=== PATIENT | female | born 1940 | race Caucasian/White ===

== ENCOUNTER 2019-01-25 21:38 | Emergency (ER) | payer MEDICARE, BC ==
--- OUTSIDE RECORDS SUMMARY | 2019-01-25 21:44 | XMS REPORT | Continuity of Care Document ---
:1940 External Reference #:[id number] Author Name Steph Galvan PA Address [address] [place] [address] Care Team Providers Name Role Phone Kaylee Lee Top Hat Body Maker Care Team Information Recreation Officer [phone] Problems Active Problems Provider Date Hypothyroidism Mario Nichols DO Onset: 11/28/2012 Benign essential hypertension Mario Nichols DO Onset: 11/28/2012 Transient cerebral ischemia Sunday Osorio MD Onset: 10/11/2005 Iatrogenic hypothyroidism Sunday Osorio MD Onset: 02/11/2005 Generalized anxiety disorder Sunday Osorio MD Onset: 02/11/2005 Coronary arteriosclerosis Sunday Osorio MD Onset: 02/11/2005 Mixed hyperlipidemia Sunday Osorio MD Onset: 02/11/2005 Social History Type Date Description Comments Sex Unknown ETOH Use Denies alcohol use Tobacco Use Start: Unknown Patient has never smoked Smoking Status Reviewed: 01/16/18 Patient has never smoked Allergies, Adverse Reactions, Alerts Active Allergies Reaction Severity Comments Date Lescol 06/15/2004 Inactive Allergies NKDA 04/12/2014 Medications Active Medications SIG Qnty Indications Ordering Date Provider Acetaminophen-Codeine 1 by mouth every 20tabs Mario Nichols, 12/25/2018 #3 6 hours as needed DO 300-30mg Tablets pain- caution sedation Nitroglycerin 1 sl on onset of 30tabs Mario Nichols, 07/01/2016 0.4mg chest pain, 1 DO Tablets Sub dose in 5 min if pain persist Metoprolol Succinate Take 1 Tablet 90tabs Mario Nichols, 07/01/2016 ER Every Evening DO 50mg Tablets ER 24HR Sertraline HCL Take 1/2 Tablet 45tabs Mario Nichols, 03/22/2016 100mg Daily DO Tablets Levothyroxine Sodium 1 by mouth every 90tabs Mario Nichols, 01/01/2016 day DO 88mcg Tablets Atorvastatin Calcium Take 1 Tablet 90tabs Mario Nichols, 02/11/2005 40mg Daily DO Tablets Aspirin Adult Low 1 by mouth daily I25.10 Unknown 03/07/1995 Strength with food 81mg Chewtabs Calcium Carbonate 1 po bid Compagni, Antacid LATHA Weldon 500mg Chewtabs Topiramate Take 1 Tablet 90tabs Mario Nichols, 50mg Tablets Every Night AT DO Bedtime Immunizations CPT Code Status Date Vaccine Reaction Lot # [id number] Given 01/16/2018 Prevnar 13 Pneumococal Conjugate Vaccine [id number] 68023 Given 01/03/2018 Fluzone Highdose Age 65 And Over Preservative & Antibiotic Free 20168 Given 04/14/2017 Fluzone Highdose Age 65 And Over [place] Preservative & Antibiotic Free 33125 Given 03/24/2015 Fluzone Highdose Age 65 And Over Preservative & Antibiotic Free 65058 Given 11/28/2012 Afluria Or Fluvirin Flu Vac Intramuscular 61259 Given 11/24/2011 Afluria Or Fluvirin Flu Vac Intramuscular 87584 Refused 01/10/2019 Fluzone Highdose Age 65 And Over Preservative & Antibiotic Free Vital Signs Date Vital Result Comment 01/10/2019 1:57pm Body Temperature 97.8 F Weight 155.00 lb Heart Rate 78 /min BP Systolic 158 mmHg BP Diastolic 80 mmHg Respiratory Rate 18 /min Height 60 inches 5'0" BMI (Body Mass Index) 30.3 kg/m2 07/19/2018 10:20am Weight 155.00 lb Heart Rate 68 /min BP Systolic 134 mmHg BP Diastolic 70 mmHg Respiratory Rate 17 /min Height 60 inches 5'0" BMI (Body Mass Index) 30.3 kg/m2 Results Test Acquired Date Facility Test Result H/L Range Note Basic (BMP) 07/12/2018 [facility] Sodium 138 mmol/L 135-146 1 Potassium 4.2 mmol/L 3.5-5.2 Chloride# 104 mmol/L 97-110 2 Carbon Dioxide 27 mmol/L 24-34 Glucose 133 mg/dL High 70-105 BUN 17 mg/dL 6-26 Creatinine 0.7 mg/dL 0.5-1.4 Calcium 9.6 mg/dL 8.5-10.5 3 Female Egfr 81 >60 4 Male Egfr 90 >60 5 Anion Gap 7 mmol/L 5-15 6 Lipid Treatment 07/12/2018 [facility] Cholesterol 132 mg/dL 50-199 Triglycerides 139 mg/dL 30-200 HDL 40 mg/dL 35-85 7 Chol/ HDL Ratio 3.3 ratio Low 3.7-5.6 VLDL 28 mg/dL 2-29 LDL (Calc) 64 mg/dL 20-99 8 Alt 23 U/L 3-42 Ast 22 U/L 8-42 Laboratory test finding 07/12/2018 [facility] TSH 0.37 uIU/mL 0.35-4.94 Free T4 1.02 ng/dL 0.70-1.48 Hemoglobin A1c 07/12/2018 [facility] Hemoglobin A1c 6.2 % High 4.1-5.9 Estimated Average Glucose Calc 131 mg/dL 71-140 Laboratory test finding 07/12/2018 [facility] T3 Total 1.1 ng/mL (0.6-1.8) 9 1 Updated reference range on new analyzer 2 Updated reference range on new analyzer 3 Updated reference range 07-05-2018 4 Concerning GFR Guidelines for Americans: Normal function or mild renal disease, if clinically at risk: >/= 60 mL/min Moderately decreased: 30-59 Severely decreased: 15-29 Renal failure: <15 There is reduced accuracy above 60ml/min/1.73 m squared, but the numeric value may be clinically useful in the near 60 range 5 Concerning GFR Guidelines: Normal function or mild renal disease, if clinically at risk: >/= 60 mL/min Moderately decreased: 30-59 Severely decreased: 15-29 Renal failure: <15 There is reduced accuracy above 60ml/min/1.73 m squared, but the numeric value may be clinically useful in the near 60 range Glomerular Filtration Rate (GFR) is estimated based on the CKD-EPI equation, which assumes a steady state for creatinine as recommended by the National Kidney Disease Education Program in conjunction with the National Institutes of Health and the National Kidney Foundation. Clinical conditions in which it may be necessary to measure GFR by using clearance methods include extremes of age and body size, severe malnutrition or obesity, diseases of skeletal muscle, paraplegia or quadriplegia, vegetarian diet, rapidly changing kidney function, and calculation of the dose of potentially toxic drugs that are excreted by the kidneys. 6 Updated Reference Range -2017 7 Per NCEP ATP III Guidelines: Results lower than 40 mg/dL are suggestive of increased risk for coronary artery disease. Results > or = to 60 mg/dL are considered a negative risk factor. 8 Per NCEP ATP III Guidelines: Normal Population <130 Patients with medical conditions: CHD/DM Optimal: <100 Borderline high: 130-159 High: 160-189 Very high: >189 9 New Assay and Reference Range in use 10/24/17. 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 R73.01 Impaired fasting glucose E03.9 Hypothyroidism, unspecified E78.2 Mixed hyperlipidemia E66.9 Obesity, unspecified Z68.30 Body mass index (BMI) 30.0-30.9, adult Assessments Date Code Description Provider 01/10/2019 R21 Rash and other nonspecific skin eruption Steph Galvan PA 01/10/2019 Z68.30 Body mass index (BMI) 30.0-30.9, adult Steph Galvan PA 07/19/2018 F43.0 Acute stress reaction Mario Nichols DO 07/19/2018 H91.90 Unspecified hearing loss, unspecified ear Mario Nichols DO 07/19/2018 I25.10 Atherosclerotic heart disease of [place] Mario 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 with 07/19/2018 G45.9 Transient cerebral ischemic attack, Mario Nichols DO unspecified 07/19/2018 R09.82 Postnasal drip Mario Nichols DO 07/19/2018 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 Mario Nichols, DO 07/19/2018 R73.01 Impaired fasting glucose Mario Nichols, DO 07/19/2018 E03.9 Hypothyroidism, unspecified Mario Nichols, DO 07/19/2018 E78.2 Mixed hyperlipidemia Mario Nichols, DO 07/19/2018 E66.9 Obesity, unspecified Mario Nichols, DO 07/19/2018 Z68.30 Body mass index (BMI) 30.0-30.9, adult Mario Nichols, DO 07/12/2018 E03.9 Hypothyroidism, unspecified Mario Nichols, DO 07/12/2018 E03.9 Hypothyroidism, unspecified Schedule, Laboratory 07/12/2018 I10 Essential (primary) hypertension Schedule, Laboratory 07/12/2018 R73.01 Impaired fasting glucose Schedule, Laboratory 07/12/2018 I10 Essential (primary) hypertension [facility] 07/12/2018 E03.9 [facility], [facility] 07/12/2018 R73.01 Impaired fasting glucose [facility] Plan of Treatment Future Appointment(s):01/12/2019 8:35 am - Schedule, Laboratory at [facility]2018 10:00 am - Nichols, Mario, DO at [facility]01/10/2019 - Steph Galvan PAR21 Rash and other nonspecific skin eruptionComments:Suspect insect biteDoubt LymeWill add Lyme titers to upcoming blood workMonitor for rash for worseningFollow up:PrnZ68.30 Body mass index (BMI) 30.0-30.9, adult Functional Status Description No Information Available Mental Status Description No Information Available Referrals Description No Information Available
--- OUTSIDE RECORDS SUMMARY | 2019-01-25 21:44 | XMS REPORT | Continuity of Care Document ---
:1940 External Reference #:[id number] Author Name Mario Nichols DO Address [address] [place] [address] Care Team Providers Name Role Phone Kaylee Lee Straight Line Edger Care Team Information Party Host [phone] Problems Active Problems Provider Date Hypothyroidism Mario [...] Patient has never smoked Smoking Status Reviewed: 01/19/19 Patient has never smoked Allergies, Adverse Reactions, Alerts Active Allergies Reaction Severity Comments Date Lescol 06/15/2004 Inactive Allergies NKDA 04/12/2014 Medications Active Medications SIG Qnty Indications Ordering Provider Date Nitroglycerin 1 sl on onset of 30tabs Mario Nichols, 07/01/2016 0.4mg chest pain, 1 DO Tablets Sub dose in 5 min if pain persist Metoprolol Succinate take 1 tablet 90tabs Mario Nichols, 07/01/2016 ER every evening DO 50mg Tablets ER 24HR Sertraline HCL take 1 tablet 90tabs Mario Nichols, 03/22/2016 100mg daily DO Tablets Levothyroxine Sodium 1 by mouth every 90tabs Mario Nichols, 01/01/2016 day DO 88mcg Tablets Atorvastatin Calcium take 1 tablet 90tabs Mario Nichols, 02/11/2005 40mg daily DO Tablets Aspirin Adult Low 1 by mouth daily I25.10 Unknown 03/07/1995 Strength with food 81mg Chewtabs Calcium Carbonate 1 po bid Compagni, Antacid LATHA Weldon 500mg Chewtabs Topiramate take 1 tablet 90tabs Mario Nichols, 50mg Tablets every night at DO bedtime History Medications Acetaminophen-Codeine #3 1 by mouth 20tabs Mario Nichols, 12/25/2018 - 300-30mg every 6 hours DO 01/19/2019 Tablets as needed pain- caution sedation Immunizations CPT Code Status Date Vaccine Reaction Lot # [id number] Given 01/19/2019 Pneumococcal 23 Immunization Adult Or [id number] Immunosuppressed Patient 75218 Given 01/16/2018 Prevnar 13 Pneumococal Conjugate Vaccine [id number] 54362 Given 01/03/2018 Fluzone Highdose Age 65 And Over Preservative & Antibiotic Free 07340 Given 04/14/2017 Fluzone Highdose Age 65 And Over [place] Preservative & Antibiotic Free 18198 Given 03/24/2015 Fluzone Highdose Age 65 And Over Preservative & Antibiotic Free 83457 Given 11/28/2012 Afluria Or Fluvirin Flu Vac Intramuscular 59916 Given 11/24/2011 Afluria Or Fluvirin Flu Vac Intramuscular 15265 Refused 01/10/2019 Fluzone Highdose Age 65 And Over Preservative & Antibiotic Free Vital Signs Date Vital Result Comment 01/19/2019 10:20am Weight 151.00 lb Heart Rate 80 /min BP Systolic 164 mmHg BP Diastolic 94 mmHg BP Systolic Recheck 140 mmHg BP Diastolic Recheck 80 mmHg Respiratory Rate 18 /min Height 60 inches 5'0" BMI (Body Mass Index) 29.5 kg/m2 01/10/2019 1:57pm Body Temperature 97.8 F Weight 155.00 lb Heart Rate 78 /min BP Systolic 158 mmHg BP Diastolic 80 mmHg Respiratory Rate 18 /min Height 60 inches 5'0" BMI (Body Mass Index) 30.3 kg/m2 Results Test Acquired Date Facility Test Result H/L Range Note CBC with Auto Diff-fcmg 01/12/2019 [facility] WBC 6.7 K/uL 4.1-11.0 RBC 4.93 M/uL 4.00-5.40 Hemoglobin 14.5 gm/dL 12.0-16.0 Hematocrit 41.5 % 36.0-47.0 MCV 84.2 fL 80.0-97.0 MCH 29.4 pg 27.0-32.0 MCHC 35.0 g/dL 32.0-36.0 RDW 13.8 % 11.5-14.5 PLT Count 205 K/ul 140-400 MPV 7.8 FL 7.1-10.7 Neutrophil 58.5 % 35.0-75.0 Lymphocyte 30.2 % 16.0-52.0 Monocyte 7.2 % 2.0-10.0 Eosinophil 3.3 % 0.0-5.0 Basophil 0.8 % 0.0-4.0 Abs Neutrophils 3.9 K/uL 2.1-8.0 Abs Lymphocytes 2.0 K/uL 0.8-5.5 Abs Monocytes 0.5 K/uL 0.1-1.0 Abs Eosinophils 0.2 K/uL 0.0-0.5 Abs Basophils 0.1 K/uL 0.0-0.3 Basic (BMP) 01/12/2019 [facility] Sodium 136 mmol/L 135-146 1 Potassium 3.9 mmol/L 3.5-5.2 Chloride# 99 mmol/L 97-110 2 Carbon Dioxide 28 mmol/L 24-34 Glucose 122 mg/dL High 70-105 BUN 20 mg/dL 6-26 Creatinine 0.9 mg/dL 0.5-1.4 Calcium 9.9 mg/dL 8.5-10.5 3 Female Egfr 62 >60 4 Male Egfr 81 >60 5 Anion Gap 9 mmol/L 5-15 6 Laboratory test finding 01/12/2019 [facility] TSH 0.91 uIU/mL 0.35-4.94 Lipid Treatment 01/12/2019 [facility] Cholesterol 152 mg/dL 50-199 Triglycerides 196 mg/dL 30-200 HDL 46 mg/dL 35-85 7 Chol/ HDL Ratio 3.3 ratio Low 3.7-5.6 VLDL 39 mg/dL High 2-29 LDL (Calc) 67 mg/dL 20-99 8 Alt 20 U/L 3-42 Ast 22 U/L 8-42 Hemoglobin A1c 01/12/2019 [facility] Hemoglobin A1c 6.4 % High 4.1-5.9 Estimated Average Glucose Calc 137 mg/dL 71-140 Lyme Igm/Igg AB -RL 01/12/2019 [facility] Lyme Igm/Igg AB @ NEGATIVE (Neg) 9 1 Updated reference range on new [...] by the kidneys. 6 Updated Reference Range 7 Per NCEP ATP III Guidelines: Results lower than 40 mg/dL are suggestive of increased risk for coronary artery disease. Results > or = to 60 mg/dL are considered a negative risk factor. 8 Per NCEP ATP III Guidelines: Normal Population <130 Patients with medical conditions: CHD/DM Optimal: <100 Borderline high: 130-159 High: 160-189 Very high: >189 9 A Negative serologic test for Lyme Disease indicates no serologic evidence of infection with B burgdorferi at the time this specimen was collected. A repeat specimen should be collected in 2 to 4 weeks if clinically indicated. Unless otherwise specified, testing performed by [facility] [address] [place] [address] Procedures Date Code Description Status 06/20/2006 [id number] Colonoscopy Completed Medical Devices Description No Information Available Encounters Type Date Location Provider Dx Diagnosis Office Visit 01/10/2019 [facility] Steph Galvan PA R21 Rash and other 1:45p nonspecific skin eruption Z68.30 Body mass index (BMI) 30.0-30.9, adult Assessments Date Code Description Provider 01/19/2019 Z00.00 Encounter for general adult medical Mario Nichols, examination without abnormal findings 01/19/2019 F43.0 Acute stress reaction Mario Nichols, 01/19/2019 H91.90 Unspecified hearing loss, unspecified ear Mario Nichols, 01/19/2019 I25.10 Atherosclerotic heart disease of [place] Mario Nichols, coronary artery with 01/19/2019 G45.9 Transient cerebral ischemic attack, NicholsMario, unspecified 01/19/2019 R09.82 Postnasal drip Mario Nichols, 01/19/2019 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 NicholsEliuew, 01/19/2019 R73.01 Impaired fasting glucose Nichols Mario, 01/19/2019 E03.9 Hypothyroidism, unspecified NicholsMario, 01/19/2019 E78.2 Mixed hyperlipidemia NicholsMario, 01/19/2019 I10 Essential (primary) hypertension NicholsEliuew, 01/19/2019 Z68.29 Body mass index (BMI) 29.0-29.9, adult NicholsMario, 01/12/2019 E66.9 Obesity, unspecified Nichols, Mario, 01/12/2019 E66.9 Obesity, unspecified Schedule, Laboratory 01/12/2019 R21 Rash and other nonspecific skin eruption NicholsEliuDO [place] 01/12/2019 R21 Rash and other nonspecific skin eruption Schedule, Laboratory 01/12/2019 I10 Essential (primary) hypertension Schedule, Laboratory 01/12/2019 R73.01 Impaired fasting glucose Schedule, Laboratory 01/12/2019 I10 Essential (primary) hypertension [facility] 01/12/2019 R73.01 Impaired fasting glucose [facility] 01/10/2019 R21 Rash and other nonspecific skin eruption Steph Galvan PA 01/10/2019 Z68.30 Body mass index (BMI) 30.0-30.9, adult Steph Galvan PA Plan of Treatment Future Appointment(s):07/13/2019 8:45 am - Schedule, Laboratory at [facility]2019 10:00 am - Mario Nichols, DO at [facility]01/19/2019 - Mario Nichols, DOZ00.00 Encounter for general adult medical examination without abnormal findingsFollow up:Blood work in 6 months and will follow up with me a couple of days later.F43.0 Acute stress reactionComments:Condition reviewed in detail with the patient.1. The patient was taking Sertraline HCL 100 mg ?? tablet. I recommended the patient to use Sertraline 100 mg po daily.2. Advised the patient to call or come back if the symptoms persist or worsen.3. We will continue to monitor.H91.90 Unspecified hearing loss, unspecified earComments: Improved with the use of bilateral hearing aids. Will continue to monitor.I25.10 Atherosclerotic heart disease of [place] coronary artery withG45.9 Transient cerebral ischemic attack, joxmdjzehyqE55.82 Postnasal dripB02.23 Postherpetic bzppphlxtflrzfM00.01 Impaired fasting glucoseNew Labs: Hemoglobin A1c, Scheduled: 07/13/19Comments:The patient's labs were reviewed with the patient her A1c was elevated at 6.4.1. Discussed with the patient that they will benefit from maintaining a diabetic diet and a regular exercise regimen. 2. Advised the patient to check the sugars on regular basis.3. Advised the patient to revisit us to check the sugars.4. We will continue to monitor.E03.9 Hypothyroidism, unspecifiedNew Labs:TSH, Scheduled: 07/13/19Free T4, Scheduled: 07/13/19Comments:TSH was well controlled at 0.91 when last checked.1. Continue taking Levothyroxine Sodium 88 mcg po daily.2. Advised the patient to maintain a healthy diet which includes vegetables, fruits, gluten free grains and seeds, dairy and non-caffeinated beverages.3. Will obtain blood work and will monitor.E78.2 Mixed hyperlipidemiaComments:Condition reviewed with the patient in detail. LDL is well controlled at 67.1. Advised the patient to continue atorvastatin 40 mg po daily.2. Encouraged the patient to decrease the total amount of fat. Choose lean meats, fat free or 1% fat milk, and low-fat dairy products such as yogurt and cheese.3. Encouraged the patient to replace unhealthy fats with healthy fats.4. Encouraged the patient to eatfoods high in fiber.5. We will recheck it during next blood draw.I10 Essential (primary) hypertensionNew Labs:Basic (BMP), Scheduled: 07/13/19Lipid Treatment, Scheduled: 07/13/19Comments:Today, the patient's BP is elevated at 164/94. On recheck it was at 140/80. 1. Continue taking Metoprolol 50 mg po daily.2. The patient will benefit from maintaining a low sodium diet, cut down caffeine intake3. The patient was encouraged to monitor BP periodically at home and maintain a log of the same to bring along during the next visit for comparison.4. Advised the patient to stay hydrated.5. Advised the patient to maintain a normal cardiac exercise regimen. 6. We will continue to monitor.Z68.29 Body mass index (BMI) 29.0-29.9, adultComments:BMI is at 29.5. The patient should try to lose weight with low-calorie diet and exercises. We willcontinue to monitor weight and BMI periodically. Functional Status Description No Information Available Mental Status Description No Information Available Referrals Description No Information Available
--- NOTE | 2019-01-25 21:49 | UC ---
Bite Injury/Animal HPI - HPI Summary HPI Summary: Pt presents with c/o dog bite to right hand. Pt was taking toy away from pet at home and dog bit right hand. Pt unsure of last Tetanus and reports that dog is UTD with vaccines. - History of Current Complaint Stated Complaint: DOG BITE RIGHT HAND Time Seen by Provider: 01/25/19 21:44 Hx Obtained From: Patient ?: No Severity Currently: Mild Severity Initially: Mild Onset/Duration: Sudden Onset Type of Bite: Pet Has Animal Been Immunized?: Yes Character: Puncture Aggravating Factor(s): Nothing Alleviating Factor(s): Rest Associated Signs And Symptoms: Positive: Negative Hx of Bite: Provoked by: - removing toy Animal Available for Observation: Yes - Risk Factors Infection/Sepsis Risk Factors: Negative - Allergies/Home Medications Allergies/Adverse Reactions: Allergies Allergy/AdvReac Type Severity Reaction Status Date / Time No Known Allergies Allergy Verified 01/25/19 21:46 Home Medications: Home Medications Aspirin [Aspirin Childrens 81 MG] 81 mg PO BEDTIME 01/25/19 [History Confirmed 01/25/19] Calcium Carbonate/Vitamin D3 [Calcium 500 + Vit D Caplet] 1 each PO BEDTIME [History Confirmed 01/25/19] Levothyroxine TAB* [Synthroid 88 MCG TAB*] 88 mcg PO DAILY 01/25/19 [History Confirmed 01/25/19] Metoprolol Tartrate TAB* [Lopressor TAB*] 25 mg PO BEDTIME 01/25/19 [History Confirmed 01/25/19] Multivitamin [Multivitamins] 1 cap PO BEDTIME 01/25/19 [History Confirmed ] Sertraline* [Zoloft*] 25 mg PO BEDTIME 01/25/19 [History Confirmed 01/25/19] Topiramate [Topamax] 25 mg PO BEDTIME 01/25/19 [History Confirmed 01/25/19] PMH/Surg Hx/FS Hx/Imm Hx Previously Healthy: Yes Endocrine History: Thyroid Disease Cardiovascular History: Cardiac Disease, Hypertension - Family History Known Family History: Positive: Cardiac Disease - Social History Occupation: Retired Lives: With Family Alcohol Use: None Substance Use Type: None Have You Smoked in the Last Year: No - Immunization History Vaccination Up to Date: No Review of Systems All Other Systems Reviewed And Are Negative: Yes Constitutional: Positive: Negative Skin: Positive: Other - 5 small puncture wounds to right hand Eyes: Positive: Negative ENT: Positive: Negative Respiratory: Positive: Negative Cardiovascular: Positive: Negative Gastrointestinal: Positive: Negative Genitourinary: Positive: Negative Motor: Positive: Negative Neurovascular: Positive: Negative Musculoskeletal: Positive: Myalgia - at bite site Neurological: Positive: Negative Psychological: Positive: Negative Is Patient Immunocompromised?: No Physical Exam Triage Information Reviewed: Yes Appearance: Well-Appearing, No Pain Distress Vital Signs Reviewed: Yes Eye Exam: Normal ENT Exam: Normal ENT: Positive: Hearing grossly normal Dental Exam: Normal Neck exam: Normal Respiratory Exam: Normal Respiratory: Positive: No respiratory distress Musculoskeletal Exam: Normal Musculoskeletal: Positive: Strength Intact, ROM Intact Neurological Exam: Normal Psychological Exam: Normal Skin Exam: Other - 5 small puncture wounds on right hand 4 on dorsal aspect of right hand below first and second finger and 5th woudn on distal 5th finger. Bleeding controlled Bite Injury Course/Dx - Differential Dx/Diagnosis Differential Diagnosis/HQI/PQRI: Fracture, Laceration, Puncture, Rabies Exposure , Superficial Infection Provider Diagnosis: Dog bite of right hand Discharge ED - Sign-Out/Discharge Documenting (check all that apply): Patient Departure All imaging exams completed and their final reports reviewed: No Studies - Discharge Plan Condition: Stable Disposition: HOME Prescriptions: Amoxicillin/Clavulanate TAB* [Augmentin TAB 500 mg*] 500 mg PO Q12H #20 tab Patient Education Materials: Animal Bite (ED) Referrals: Mario Nichols DO [Primary Care Provider] - If Needed - Billing Disposition and Condition Condition: STABLE Disposition: Home
[2019-01-25] MEDS ORDERED: Tetan/Diph/Pertus SYR(Tdap)* 0.5 ML SYR(BOOSTRIX) use SYR contains LATEX IM ONE (21:51)
[2019-01-25 21:58] VITALS: BP 182/79
[2019-01-25] MEDS ORDERED: Amoxicillin/Clavulanate TAB* 875 MG PO ONE (22:09)
[2019-01-26] MEDS ORDERED: Amoxicillin/Clavulanate TAB* 500 MG PO ONE (22:04)
== END 2019-01-25 22:14 | disposition home or self-care (01) ==
LOC: UCCORT 21:38
DX: S61.451A Open bite of right hand, initial encounter (principal); E07.89 Other specified disorders of thyroid; I10 Essential (primary) hypertension; Z79.890 Hormone replacement therapy; Z79.899 Other long term (current) drug therapy; Z23 Encounter for immunization; W54.0XXA Bitten by dog, initial encounter; Y92.009 Unspecified place in unspecified non-institutional (private) residence as the place of occurrence of the external cause
CPT/HCPCS: 90471; 90715; 99212; A9270-GY; G0463

== ENCOUNTER 2019-05-05 11:12 | Emergency (ER) | payer MEDICARE, OTHER, BC ==
[2019-05-05 11:24] VITALS: BP 171/89
--- NOTE | 2019-05-05 11:59 | UC ---
Head Injury HPI - HPI Summary HPI Summary: 79-year-old female presents with reports of a head injury. States last evening she was walking from her garage to her house when she tripped and fell hitting her head. She is unsure exactly what she hit her head on as it was dark. Reports no loss of consciousness and states she has full recollection of the events immediately before and after the incident. Complains of some bruising and swelling to the or head and a mild abrasion to the bridge of her nose. Denies headache, neck pain, visual disturbances, slurred or difficulty speaking , facial droop, numbness, tingling, or weakness of her arms or legs, or any other injuries. - History Of Current Complaint Chief Complaint: UCHeadInjury Stated Complaint: SP FALL-HEAD INJURY Time Seen by Provider: 05/05/19 11:28 Hx Obtained From: Patient Pain Intensity: 0 - Allergies/Home Medications Allergies/Adverse Reactions: Allergies Allergy/AdvReac Type Severity Reaction Status Date / Time No Known Allergies Allergy Verified 01/25/19 21:46 Home Medications: Home Medications Aspirin [Aspirin Childrens 81 MG] 81 mg PO BEDTIME 01/25/19 [History Confirmed 05/05/19] Calcium Carbonate/Vitamin D3 [Calcium 500 + Vit D Caplet] 1 each PO BEDTIME [History Confirmed 05/05/19] Levothyroxine TAB* [Synthroid 88 MCG TAB*] 88 mcg PO DAILY 01/25/19 [History Confirmed 05/05/19] Multivitamin [Multivitamins] 1 cap PO BEDTIME 01/25/19 [History Confirmed ] Sertraline* [Zoloft*] 25 mg PO BEDTIME 01/25/19 [History Confirmed 05/05/19] Topiramate [Topamax] 25 mg PO BEDTIME 01/25/19 [History Confirmed 05/05/19] Metoprolol Tartrate TAB* [Lopressor TAB*] 50 mg PO DAILY 05/05/19 [History Confirmed 05/05/19] PMH/Surg Hx/FS Hx/Imm Hx Endocrine History: Thyroid Disease Cardiovascular History: Cardiac Disease, Hypertension Psychological History: Depression - Surgical History Surgical History: Yes Surgery Procedure, Year, and Place: 2 c-sections. Triple by-pass. Angiogram. Cholecystectomy. Bilateral cataracts - Family History Known Family History: Positive: Cardiac Disease - Social History Occupation: Retired Lives: With Family Alcohol Use: None Substance Use Type: None Smoking Status (MU): Never Smoked Tobacco Have You Smoked in the Last Year: No - Immunization History Vaccination Up to Date: No Review of Systems All Other Systems Reviewed And Are Negative: Yes Constitutional: Positive: Negative Skin: Positive: Bruising, Other - Abrasions Eyes: Negative: Blurred Vision, Diplopia, Photophobia ENT: Negative: Epistaxis Respiratory: Positive: Negative Cardiovascular: Negative: Palpitations, Chest Pain Genitourinary: Positive: Negative Musculoskeletal: Positive: Negative Neurological/Mental Status: Negative: Headache, Weakness, Paresthesia, Numbness Is Patient Immunocompromised?: No Physical Exam - Summary Physical Exam Summary: GENERAL APPEARANCE: Awake, alert and oriented x 4. Well appearing older adult female in no acute distress. HEAD: Normocephalic. 2 areas of ecchymosis noted to the frontal head. One area has an small superficial abrasion centrally. Small superficial abrasion to the bridge of the nose. (See diagram) EYES: Conjunctiva clear. No drainage. PERRL, EOM intact. Vision is grossly intact. EARS: External auditory canals and tympanic membranes clear, hearing grossly intact. NOSE: No nasal discharge. No epistaxis. THROAT: Pharynx normal. No tonsilar inflammation, swelling, exudate, or lesions. Uvula midline. Oral cavity normal. Teeth and gingiva in good general condition. NECK: Neck supple and non-tender. Full ROM. CARDIAC: Normal S1 and S2. No S3, S4 or murmurs. Rhythm is regular. There is no peripheral edema, cyanosis or pallor. Extremities are warm and well perfused. Capillary refill is less than 2 seconds. Peripheral pulses intact. LUNGS: Clear to auscultation without rales, rhonchi, wheezing or diminished breath sounds. ABDOMEN: Positive bowel sounds. Soft, nondistended, nontender. No guarding or rebound. No masses or hepatosplenomegally. MUSKULOSKELETAL: ROM intact to all extremities. No joint erythema or tenderness. Normal muscular development. Normal gait. BACK: No spinal deformity or tenderness, decreased range of motion or muscular spasm. NEUROLOGICAL: CN II-XII intact. Strength and sensation symmetric and intact throughout. Reflexes 2+ throughout. Cerebellar testing normal. SKIN: Skin normal color, texture and turgor. Triage Information Reviewed: Yes Vital Signs: Initial Vital Signs Temp 97.1 F 05/05/19 11:19 Pulse 63 05/05/19 11:19 Resp 14 05/05/19 11:19 BP 171/89 05/05/19 11:19 Pulse Ox 96 05/05/19 11:19 Vital Signs Reviewed: Yes Images Head: 1 - Echymosis and superficial abrasion 2 - Eccymosis 3 - Superficial abrasion Diagnostics - Radiology No standard instances Radiology Interpretation Completed By: Radiologist Summary of Radiographic Findings: Order Information: CT BRAIN WO. INDICATION: The patient fell, Tuesday at 5:00 PM. COMPARISON: MR the brain October 02, 2003. TECHNIQUE: Contiguous axial sections of the brain were obtained from the skull base to the vertex without contrast. FINDINGS: The ventricles, cisterns and sulci exhibit symmetrical involutional changes. The muller-white matter differentiation is adequately maintained and there is no sulcal effacement. No significant focal abnormality or mass effect is present. There is no evidence for intracranial hemorrhage. No significant focal osseous abnormality is present. Incidentally noted is hyperostosis frontalis interna. The visualized portion of the paranasal sinuses appear clear. The mastoid air cells are well aerated bilaterally. IMPRESSION: No acute intracranial findings. Head Injury Course/Dx - Course Course Of Treatment: 79-year-old female presents with reports of a head injury. States last evening she was walking from her garage to her house when she tripped and fell hitting her head. She is unsure exactly what she hit her head on as it was dark. Reports no loss of consciousness and states she has full recollection of the events immediately before and after the incident. Complains of some bruising and swelling to the or head and a mild abrasion to the bridge of her nose. Denies headache, neck pain, visual disturbances, slurred or difficulty speaking , facial droop, numbness, tingling, or weakness of her arms or legs, or any other injuries. Afebrile. Hypertensive otherwise that is unstable. Patient was neurologically intact with 2 areas of ecchymosis noted to the frontal head. One area had a small superficial abrasion centrally. There was a small superficial abrasion to the bridge of the nose. Remainder of exam was unremarkable. Based on the patient's age a CT of the brain without contrast was obtained and showed no acute intracranial injury. Reviewed results with the patient. Recommending conservative treatment for a mild closed head injury without loss of consciousness. She is to follow-up with her primary care provider in 2-3 days if symptoms are not improving. Anticipatory guidance and warning symptoms require immediate evaluation in the emergency room were reviewed with the patient. Verbalizes understanding and agrees with plan of care. - Differential Dx/Diagnosis Differential Diagnosis/HQI/PQRI: Cerebral Contusion, Concussion Without LOC, Contusion, Intracranial Bleed, Nasal Fracture, Skull Fracture Provider Diagnosis: Closed head injury without loss of consciousness Discharge ED - Sign-Out/Discharge Documenting (check all that apply): Patient Departure All imaging exams completed and their final reports reviewed: Yes - Discharge Plan Condition: Stable Disposition: HOME Patient Education Materials: Head Injury (ED) Referrals: Mario Nichols DO [Primary Care Provider] - 2 Days Additional Instructions: The CT scan performed in the clinic today was normal. Keep the abrasions to your head and nose clean with a mild soap and water. You may apply a small amount of antibiotic ointment. Apply ice for 15-20 minutes to help reduce any swelling. Take acetaminophen (Tylenol) according to directions as needed for pain. Follow up with your primary care provider in 2-3 days if symptoms persist. Seek immediate medical attention in the emergency room if you have a severe headache that is not managed with the acetaminophen, visual disturbances, weakness or dizziness, facial droop, slurred or difficulty speaking, weakness, numbness, or tingling in the arms or legs, or any worsening of symptoms. - Billing Disposition and Condition Condition: STABLE Disposition: Home - Attestation Statements Provider Attestation: Chart has been reviewed. I did not see the patient but was available for consult. EK.
--- OUTSIDE RECORDS SUMMARY | 2019-05-05 12:03 | XMS REPORT | Continuity of Care Document ---
:1940 External Reference #:[id number] Author Name Steph Galavn PA Address [address] [place] [address] Care Team Providers Name Role Phone Kaylee Lee Passport Application Examiner Care Team Information Patient Relations Representative [phone] Problems Active Problems Provider Date Hypothyroidism Mario [...] Code Status Date Vaccine Reaction Lot # [id number] Given 01/19/2019 Pneumococcal 23 Immunization Adult Or [id number] Immunosuppressed Patient 10961 Given 01/16/2018 Prevnar 13 Pneumococal Conjugate Vaccine [id number] Given 01/03/2018 Fluzone Highdose Age 65 And Over Preservative & Antibiotic Free 75278 Given 04/14/2017 Fluzone Highdose Age 65 And Over [place] Preservative & Antibiotic Free 03056 Given 03/24/2015 Fluzone Highdose Age 65 And Over Preservative & Antibiotic Free 55556 Given 11/28/2012 Afluria Or Fluvirin Flu Vac Intramuscular 88969 Given 11/24/2011 Afluria Or Fluvirin Flu Vac Intramuscular 81137 Refused 01/10/2019 Fluzone Highdose Age 65 And Over Preservative & Antibiotic Free Vital Signs Date Vital Result Comment 04/17/2019 8:22am Weight 150.00 lb Heart Rate 72 /min BP Systolic 142 mmHg BP Diastolic 80 mmHg BP Systolic Recheck 136 mmHg BP Diastolic Recheck 72 mmHg Respiratory Rate 18 /min Height 60 inches 5'0" BMI (Body Mass Index) 29.3 kg/m2 01/19/2019 10:20am Weight 151.00 lb Heart Rate 80 /min BP Systolic 164 mmHg BP Diastolic 94 mmHg BP Systolic Recheck 140 mmHg BP Diastolic Recheck 80 mmHg Respiratory Rate 18 /min Height 60 inches 5'0" BMI (Body Mass Index) 29.5 kg/m2 Results Test Acquired Date Facility Test [...] Unless otherwise specified, testing performed by [facility] [place] [facility] [address] [place] [id number] Procedures Date Code Description Status 06/20/2006 02300792 Colonoscopy Completed Medical Devices Description No Information Available Encounters Type Date Location Provider Dx Diagnosis Office Visit 01/19/2019 [facility] Mario Nichols DO Z00.00 Encntr for general 10:00a adult medical exam w/o abnormal findings F43.0 Acute stress reaction H91.90 Unspecified hearing loss, unspecified ear I25.10 Athscl heart disease of [place] coronary artery w/o ang pctrs G45.9 Transient cerebral ischemic attack, unspecified R09.82 Postnasal drip 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 R73.01 Impaired fasting glucose E03.9 Hypothyroidism, unspecified E78.2 Mixed hyperlipidemia Z13.31 Encounter for screening for depression I10 Essential (primary) hypertension Z23 Encounter for immunization Z68.29 Body mass index (BMI) 29.0-29.9, adult Office Visit 01/10/2019 1:45p [facility] Steph Galvan PA R21 Rash and other nonspecific skin eruption Z68.30 Body mass index (BMI) 30.0-30.9, adult Assessments Date Code Description Provider 04/17/2019 I10 Essential (primary) hypertension Steph Galvan PA 04/17/2019 Z68.29 Body mass index (BMI) 29.0-29.9, adult Steph Galvan PA 01/19/2019 Z00.00 Encounter for general adult medical Mario Nichols DO examination without abnormal findings 01/19/2019 F43.0 Acute stress reaction Mario Nichols DO 01/19/2019 H91.90 Unspecified hearing loss, unspecified ear Mario Nichols DO 01/19/2019 I25.10 Atherosclerotic heart disease of [place] Mario 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 with 01/19/2019 G45.9 Transient cerebral ischemic attack, Mario Nichols DO unspecified 01/19/2019 R09.82 Postnasal drip Mario Nichols DO 01/19/2019 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 Mario Nichols DO 01/19/2019 R73.01 Impaired fasting glucose Mario Nichols DO 01/19/2019 E03.9 Hypothyroidism, unspecified Mario Nichols DO 01/19/2019 E78.2 Mixed hyperlipidemia Mario Nichols DO 01/19/2019 Z13.31 Encounter for screening for depression Mario Nichols, 01/19/2019 I10 Essential (primary) hypertension Mario Nichols, 01/19/2019 Z23 Encounter for immunization Mario Nichols, 01/19/2019 Z68.29 Body mass index (BMI) 29.0-29.9, adult Mario Nichols, DO 01/12/2019 E66.9 Obesity, unspecified Mario Nichols, DO 01/12/2019 E66.9 Obesity, unspecified Schedule, Laboratory 01/12/2019 R21 Rash and other nonspecific skin eruption Mario Nichols, DO 01/12/2019 R21 Rash and other nonspecific skin eruption Schedule, Laboratory 01/12/2019 I10 Essential (primary) hypertension Schedule, Laboratory 01/12/2019 R73.01 Impaired fasting glucose Schedule, Laboratory 01/12/2019 I10 Essential (primary) hypertension [facility] 01/12/2019 R73.01 Impaired fasting glucose [facility] 01/10/2019 R21 Rash and other nonspecific skin eruption Steph Galvan PA 01/10/2019 Z68.30 Body mass index (BMI) 30.0-30.9, adult Steph Galvan PA Plan of Treatment Future Appointment(s):07/13/2019 8:45 am - Schedule, Laboratory at [facility]2019 10:00 am - Mario Nichols, DO at [facility]04/17/2019 - Steph Galvan PAI10 Essential (primary) hypertensionComments:Controlled in officeAdvised to get new home cuff and monitor readings at home once/dayAdvised to call next with home readingsIf readings elevated, suggest adding new medicationCall with questions/ concernsFollow up:PrnZ68.29 Body mass index (BMI) 29.0-29.9, adult Functional Status Description No Information Available Mental Status Description No Information Available Referrals Description No Information Available
== END 2019-05-05 13:09 | disposition home or self-care (01) ==
LOC: UCCORT 11:12
DX: S09.90XA Unspecified injury of head, initial encounter (principal); E07.9 Disorder of thyroid, unspecified; I10 Essential (primary) hypertension; F32.9 Major depressive disorder, single episode, unspecified; Z79.899 Other long term (current) drug therapy; Z79.82 Long term (current) use of aspirin; Z79.890 Hormone replacement therapy; W01.0XXA Fall on same level from slipping, tripping and stumbling without subsequent striking against object, initial encounter; Y93.01 Activity, walking, marching and hiking; Y92.009 Unspecified place in unspecified non-institutional (private) residence as the place of occurrence of the external cause
CPT/HCPCS: 70450; 99211; G0463